=== PATIENT | male | born 1990 | race Caucasian/White ===

== ENCOUNTER 2016-12-17 11:09 | Emergency (ER) | payer OTHER | END 2016-12-17 12:15 | disposition home or self-care (01) | LOC: ER1 11:09 | DX: L02.416 Cutaneous abscess of left lower limb (principal); K21.9 Gastro-esophageal reflux disease without esophagitis; Z79.899 Other long term (current) drug therapy | CPT/HCPCS: 10061; 87070; 87077; 87186; 87205; 99283 ==

== ENCOUNTER 2016-12-19 11:10 | Emergency (ER) | payer OTHER | END 2016-12-19 11:30 | disposition home or self-care (01) | LOC: ER1 11:10 | DX: Z48.01 Encounter for change or removal of surgical wound dressing (principal) | CPT/HCPCS: 36415; 96374; 96375; 99282 ==